=== PATIENT | male | born 1965 | race African-American/Black ===

== ENCOUNTER 2016-10-31 10:54 | Outpatient (CLI) | payer OTHER ==
[2016-10-31 12:44] LABS: Bilirubin Negative (Negative); Blood, Urine Negative (Negative); Glucose, Urine (Dipstick) Negative (Negative); Ketone, Urine Negative (Negative); Nitrite Negative (Negative); Protein, Urine (Dipstick) Negative (Neg-Trace); Urobilinogen 0.2 mg/dL (0.2-1.0)
[2016-10-31 13:06] LABS: Bacteria/HPF None Seen HPF (None Seen); Hyaline Casts/LPF NONE SEEN LPF (0-3 Hyaline); Oval Fat Bodies/HPF None Seen HPF (None Seen); RBC/HPF None Seen HPF (0-3); Renal Epithelial None Seen HPF (0-3); Sperm/HPF None Seen HPF (None Seen); Squamous Epithelial None Seen HPF (0-3); Transitional Epithelial NONE SEEN HPF (0-3); Trichomonas/HPF None Seen HPF (None Seen); WBC/HPF None Seen HPF (0-3); Yeast-All Forms None Seen HPF (None Seen)
[2016-10-31 19:05] LABS: Microalbumin Urine Less than 1.0 mg/dL (0.5-50.0)
== END 2016-10-31 10:55 | disposition home or self-care (01) ==
LOC: HPCALD 10:54
PROVIDERS: ATTEND Family Medicine
DX: R30.0 Dysuria (principal); E11.65 Type 2 diabetes mellitus with hyperglycemia
CPT/HCPCS: 81001; 82043; 82570; 87491; 87591

== ENCOUNTER 2018-08-05 09:00 | Outpatient (CLI) | payer BC ==
--- NOTE | 2018-08-05 20:02 | RAD ---
LEFT ELBOW FOUR VIEWS: 08/05/2018 FINDINGS: No fracture, recent or remote, is seen. There is no joint fluid. Some bony spurring is seen on the coronoid process of the ulna. IMPRESSION: No acute bony findings. Minimal bony spurring. POS: HOME
== END 2018-08-05 09:01 | disposition home or self-care (01) ==
LOC: BURRAD 09:00
PROVIDERS: ATTEND Family Medicine
DX: M25.522 Pain in left elbow (principal); M77.9 Enthesopathy, unspecified